=== PATIENT | male | born 1960 | race Caucasian/White ===

== ENCOUNTER 2017-09-14 19:07 | Emergency (ER) | payer OTHER ==
[2017-09-14] MEDS ORDERED: NS 0.9% 1000 ML* 1,000 ML IV ONE ×2 (19:48→21:31)
[2017-09-14] MEDS ORDERED: fentaNYL* 50 MCG/ML 2 ML VIAL (100 MCG VIAL) IV SLOW PU ONE ×2 (19:49→23:33)
[2017-09-14] MEDS ORDERED: Digoxin IV* 0.5 MG/2 ML AMP (0.25 MG/ML) IV SLOW PU ONE (19:50)
[2017-09-14] MEDS ORDERED: Metoclopramide IV* 5 MG/ML 2 ML VIAL IV SLOW PU ONE (19:50)
[2017-09-14 19:51] LABS: ABS Basophils 0.1 10^3/ul (0-0.2); ABS Eosinophils 0.4 10^3/ul (0-0.6); ABS Lymphocytes 3.3 10^3/ul (1.0-4.8); ABS Monocytes 1.1 10^3/ul (0-0.8); ABS Neutrophils 6.1 10^3/ul (1.5-7.7); ABS Nucleated RBC 0 10^3/ul; Eosinophil % 3.6 % (0-6); Hematocrit 54 % (42-52); Hemoglobin 18.4 g/dl (14.0-18.0); Mean Corpuscular HGB Conc 34 g/dl (31-36); Mean Corpuscular Hemoglobin 31 pg (27-31); Mean Corpuscular Volume 92 fL (80-94); Nucleated Red Blood Cells % 0.1; Platelet Count 175 10^3/ul (150-450); Red Blood Count 5.87 10^6/ul (4.00-5.40); Red Cell Distribution Width 14 % (10.5-15); White Blood Count 11.1 10^3/ul (3.5-10.8)
--- NOTE | 2017-09-14 20:01 | RAD ---
Indication: Palpitations. Single frontal view of the chest performed at 1953 hours was reviewed. Comparison is made with previous exam dated June 29, 2015. Cardiomegaly is noted. Lung zapata demonstrate no pleural fluid, pneumonia or pneumothorax. IMPRESSION: NO ACTIVE CARDIOPULMONARY DISEASE IS NOTED.
[2017-09-14 20:07] LABS: EGFR Non-African American 66.2 (>60)
[2017-09-14] MEDS ORDERED: Metoprolol Tartrate IV* 1 MG/ML 5 ML VIAL IV ONE (20:40)
[2017-09-14 20:48] LABS: INR 1.1 (0.77-1.02)
[2017-09-14] MEDS ORDERED: fentaNYL* 50 MCG/ML 2 ML VIAL (100 MCG VIAL) ONE (21:57)
[2017-09-14] MEDS ORDERED: Naloxone* 0.4 MG/ML 10 ML VIAL ONE (21:58)
[2017-09-14] MEDS ORDERED: Flumazenil* 0.1 MG/ML 5 ML MDV ONE (21:58)
[2017-09-14] MEDS ORDERED: Midazolam concentrated* 5 MG/ML 1 ml VIAL ONE (21:58)
[2017-09-14] MEDS ORDERED: Midazolam* 1 MG/ML 5 ML VIAL (5 MG) IV ONE (23:32)
[2017-09-15 00:09] VITALS: BP 110/75
--- NOTE | 2017-09-15 06:04 | ED ---
Patricio Tapia Tiffany, scribed for Mckay Stewart MD on 09/14/17 at 1958 . Palpitations / Dysrhythmia - HPI Summary HPI Summary: 57 year old M presenting to [facility] complains of chest palpitations since 16:00 today while sitting and watching TV. Symptoms aggravated by nothing. Symptoms alleviated by nothing. Patient reports dizziness, chest pain, headache. Denies shortness of breath. States that he was not outside in sun today, has been hydrating with fluids all day. Hx A-fib since 2016 with admission. Takes Xarelto , Toprol XL 150 mg and Tikosyn 500 mg. - History of Current Complaint Chief Complaint: EDDysrhythmPalp Time Seen by Provider: 09/14/17 19:27 Hx Obtained From: Patient Onset/Duration: Lasting Hours - 16:00 today, Still Present Aggravating: Nothing Alleviating: Nothing - Allergy/Home Medications Allergies/Adverse Reactions: Allergies Allergy/AdvReac Type Severity Reaction Status Date / Time Adhesive Tape Allergy Unknown Verified 09/14/17 19:24 Reaction Details morphine Allergy Hallucinati Verified 09/14/17 19:24 ons tramadol Allergy Unknown Verified 09/14/17 19:24 Reaction Details Home Medications: Home Medications Dofetilide CAP* [Tikosyn CAP*] 500 mcg PO DAILY 09/14/17 [History Confirmed 05/30] Metoprolol Succinate XL TAB* [Toprol XL TAB*] 50 mg PO QAM 09/14/17 [History Confirmed 09/14/17] Metoprolol Succinate XL TAB* [Toprol XL TAB*] 100 mg PO QPM 09/14/17 [History Confirmed 09/14/17] traZODone TAB* [Desyrel TAB*] 50 mg PO BEDTIME 09/14/17 [History Confirmed 09/14] PMH/Surg Hx/FS Hx/Imm Hx Previously Healthy: No Endocrine/Hematology History: Denies: Hx Bone Marrow Disease, Hx Diabetes, Hx Sickle Cell Disease, Hx Anemia Cardiovascular History: Reports: Hx Angina, Hx Atrial Fibrillation, Hx Hypertension, Other Cardiovascular Problems/Disorders - HISTORY OF A FIB- ON MEDICATION FOR-SEES DR. NIKITA REZA Denies: Hx Congestive Heart Failure, Hx Coronary Artery Disease, Hx Hypercholesterolemia, Hx Myocardial Infarction, Hx Pacemaker/ICD, Hx Valvular Heart Disease Respiratory History: Reports: Hx Sleep Apnea - uses c-pap, Other Respiratory Problems/Disorders - QUIT SMOKING IN MAR 2015 Denies: Hx Asthma, Hx Chronic Obstructive Pulmonary Disease (COPD) GI History: Reports: Hx Gall Bladder Disease - partial removal, Hx Hiatal Hernia , Other GI Disorders - COLITIS Denies: Hx Jaundice History: Reports: Hx Kidney Stones - HISTORY OF, Other Problems/Disorders - LEFT- 5 CM CYST- SEES DR. HASKINS FOR Denies: Hx Renal Disease Musculoskeletal History: Reports: Hx Tendonitis - Left wrist Denies: Hx Arthritis, Hx Osteoporosis Sensory History: Reports: Hx Contacts or Glasses Denies: Hx Hearing Aid Opthamlomology History: Reports: Hx Contacts or Glasses Psychiatric History: Denies: Hx Anxiety, Hx Depression, Hx Panic Disorder - Surgical History Surgery Procedure, Year, and Place: 03/2015 appendectomy. 03/2015 wound vac- STATES FINISHED IN APRIL- SCAB IS STILL IN PLACE. PARTIAL GALLBLADDER [id number]. BOLLINGER-. ERCP. Cardiac ablation Hx Anesthesia Reactions: No - HARD TIME WAKING UP - Immunization History Date of Tetanus Vaccine: unk Date of Influenza Vaccine: unk Infectious Disease History: No Infectious Disease History: Denies: Traveled Outside the [place] in Last 30 Days - Family History Known Family History: Positive: Cardiac Disease - mother - Social History Alcohol Use: Rare Hx Substance Use: No Substance Use Type: Reports: None Hx Tobacco Use: Yes Smoking Status (MU): Heavy Every Day Tobacco Smoker Type: Cigarettes Amount Used/How Often: 1 PPD X 40 YEARS Length of Time of Smoking/Using Tobacco: 30 Have You Smoked in the Last Year: Yes Review of Systems Positive: Chest Pain, Other - chest palpitation Negative: Shortness Of Breath Neurological: Other - dizziness Positive: Headache All Other Systems Reviewed And Are Negative: Yes Physical Exam - Summary Physical Exam Summary: VITAL SIGNS: Reviewed. GENERAL: Patient is a well-developed and nourished male who is lying comfortable in the stretcher. Patient is not in any acute respiratory distress. HEAD AND FACE: No signs of trauma. No ecchymosis, hematomas or skull depressions. No sinus tenderness. EYES: PERRLA, EOMI x 2, No injected conjunctiva, no nystagmus. EARS: Hearing grossly intact. Ear canals and tympanic membranes are within normal limits. MOUTH: Oropharynx within normal limits. NECK: Supple, trachea is midline, no adenopathy, no JVD, no carotid bruit, no c- spine tenderness, neck with full ROM. CHEST: Symmetric, no tenderness at palpation LUNGS: Clear to auscultation bilaterally. No wheezing or crackles. CVS: Irregular mild tachycardia ABDOMEN: Soft, non-tender. No signs of distention. No rebound no guarding, and no masses palpated. Bowel sounds are normal. EXTREMITIES: FROM in all major joints, no edema, no cyanosis or clubbing. NEURO: Alert and oriented x 3. No acute neurological deficits. Speech is normal and follows commands. SKIN: Dry and warm Triage Information Reviewed: Yes Vital Signs On Initial Exam: Initial Vitals Temp Pulse Resp BP Pulse Ox 97.7 F 74 16 123/82 93 09/14/17 19:08 09/14/17 19:08 09/14/17 19:08 09/14/17 19:08 09/14/17 19:08 Vital Signs Reviewed: Yes Procedures - Procedure Summary Procedure Summary: Consent from patient was obtained for moderate sedation. Moderate sedation protocol was followed. Patient was given 100 mg fentanyl and 50 mg Versed. Good moderate sedation was accomplished. No reversal agent was used. Vital signs were stable throughout the procedure. Time spent was 15 minutes. Patient was cardioverted twice with 120 J time 1 followed by 200 J time 2. Patient stayed in A-fib. Cardioversion was not successful to convert to sinus rhythm. Diagnostics - Vital Signs Vital Signs Temp Pulse Resp BP Pulse Ox 09/14/17 19:26 90 94 09/14/17 19:08 97.7 F 74 16 123/82 93 - Laboratory Result Diagrams: 09/14/17 19:40 09/14/17 20:57 Lab Statement: Any lab studies that have been ordered have been reviewed, and results considered in the medical decision making process. - Radiology CXR Radiology Interpretation Completed By: Radiologist - NO ACTIVE CARDIOPULMONARY DISEASE IS NOTED. ED physician has reviewed this report. - EKG 1917 Cardiac Rate: Tachycardia - 116 BPM EKG Rhythm: Atrial Fibrillation EKG Interpretation: Q waves in III and F Course/Dx - Course Course Of Treatment: 57 y/o M presenting to [facility] complains of chest palpitations since 16:00 today. In ED course, patient was given IV fluids, fentanyl, Lopressor, and Reglan. EKG shows A-fib. CXR negative for cardiopulmonary disease. Spoke with Dr. Fishman, cardiology, who is OK with cardioverting the patient. Patient was moderately sedated with moderate sedation protocol. Cardioversion was performed twice, patient stayed in A-fib. Told cardiology that cardioversion was unsuccesful to convert pt to sinus rhthym , advised that patient can be discharged home if his rate is controlled. Rate is controlled in ED. Pt is already on Xarelto. He will be d/c home with f/u from his laboratory specialist. - Diagnoses Provider Diagnoses: Chronic atrial fibrillation - Physician Notifications Discussed Care Of Patient With: Foster Fishman Time Discussed With Above Provider: 21:30 Instructed by Provider To: Other - Dr. Fishman, cardiology, is OK with cardioverting the patient. Spoke with cardiology again and informed him that cardioversion did not work. He advised that if cardioversion does not work, patient can be discharged home if rate is controlled. Discharge - Sign-Out/Discharge Documenting (check all that apply): Discharge/Admit/Transfer - Discharge - Discharge Plan Condition: Stable Disposition: HOME Patient Education Materials: A-fib (Atrial Fibrillation) (ED) Referrals: Bart Rodriguez MD [Primary Care Provider] - Additional Instructions: Follow up with your laboratory specialist on , September 16, 2017. RETURN TO THE EMERGENCY DEPARTMENT FOR CHANGING OR WORSENING SYMPTOMS. The documentation as recorded by the Patricio raya Tiffany accurately reflects the service I personally performed and the decisions made by me, Mckay Stewart MD.
== END 2017-09-15 00:08 | disposition home or self-care (01) ==
LOC: ED 19:07
DX: I48.2 Chronic atrial fibrillation (principal); I10 Essential (primary) hypertension; F17.210 Nicotine dependence, cigarettes, uncomplicated; Z79.01 Long term (current) use of anticoagulants; Z79.899 Other long term (current) drug therapy; Z88.5 Allergy status to narcotic agent
CPT/HCPCS: 36415; 71045; 80053; 83605; 83735; 84443; 84484; 85025; 85610; 85730; 92960; 93005; 96361; 96374; 96375; 96376; 99285; J1160; J2250; J2310; J2765; J3010; J3490